=== PATIENT | male | born 1965 | race Caucasian/White ===

== ENCOUNTER 2016-12-24 09:06 | Emergency (ER) | payer SELFPAY ==
[~2016-12-24] VITALS: Ht 172.7 cm; Wt 77.1 kg
[~2016-12-24 09:06] MED LIST: AMOX500T PO; IBUP-232 PO; IBUP400T20 PO
[2016-12-24 09:07] VITALS: BP 110/79; PULSE 60; RESP 15; TEMP 98.1; O2SAT 97
[2016-12-24] MEDS ORDERED: PRED20 PO (09:27)
[2016-12-24] MEDS ORDERED: AZIT500T2 PO (09:27)
[2016-12-24] MEDS ORDERED: ALBUAER3 INH (09:27)
[2016-12-24] MEDS ORDERED: ALBUTEROL SULFATE 90 MCG/ACT HFA 8 GM INHALER INH ONE (09:30)
[2016-12-24] MEDS ORDERED: predniSONE 20 MG TAB PO ONE (09:30)
--- NOTE | 2016-12-24 09:30 | PD ---
HPI Chief Complaint: Cold / Flu Symptoms Time Seen by Provider: 09:16 Travel History International Travel<30 days: No Contact w/Intl Traveler<30days: No Traveled to known affect area: No History of Present Illness HPI Patient is a 51-year-old male who presents to emergency room with complaints of cough, congestion and wheezing for the past week. Patient reports that he is a smoker, reports that he has been coughing up thick yellowish sputum for the past week, reports increased sinus congestion with his symptoms. Patient denies any fevers or chills. Patient reports that his housemate is sick with similar symptoms. PFSH Past Medical History Arthritis: No Asthma: No Autoimmune Disease: No Blood Disorders: Yes (NEUTROPENIA) Heart Rhythm Problems: No Cancer: No Cardiovascular Problems: No High Cholesterol: No Chemotherapy: No Chest Pain: No Congestive Heart Failure: No COPD: No Cerebrovascular Accident: No Diabetes: No Diminished Hearing: No Endocrine: No Gastrointestinal Disorders: No GERD: No Glaucoma: No Genitourinary: No Headaches: No Hepatitis: No Hiatal Hernia: No Hypertension: No Immune Disorder: No Inguinal Hernia: Yes Implanted Vascular Access Dvce: No Kidney Stones: No Musculoskeletal: No Neurologic: No Psychiatric: No Reproductive: No Respiratory: No Immunizations Current: Yes Migraines: No Myocardial Infarction: No Radiation Therapy: No Renal Failure: No Seizures: No Sickle Cell Disease: No Sleep Apnea: No Thyroid Disease: No Ulcer: No Influenza Vaccination: No PNEUMOCCOCAL Vaccine (Year): 2 ?: Not Past Surgical History Abdominal Surgery: Yes (inginual hernia repair) AICD: No Appendectomy: No Arteriovenous Shunt: No Cardiac Surgery: No Cholecystectomy: No Ear Surgery: No Endocrine Surgery: No Eye Surgery: No Genitourinary Surgery: No Gynecologic Surgery: No Insulin Pump: No Joint Replacement: No Neurologic Surgery: No Oral Surgery: No Pacemaker: No Thoracic Surgery: No Other Surgery: Yes (Inguineal hernia repair) Social History Alcohol Use: No (denies) Tobacco Use: Yes (ONE PPD) Substance Use: No Allergies-Medications (Allergen,Severity, Reaction): Coded Allergies: No Known Allergies (Verified , 12/24/16) Reported Meds & Prescriptions Reported Meds & Active Scripts Active Prednisone 20 Mg Tab 20 Mg PO BID 5 Days Proair Hfa 8.5 GM Inh (Albuterol Sulfate) 90 Mcg/Act Aer 2 Puff INH Q4-6H PRN 108 mcg/actuation Azithromycin 500 Mg Tab 500 Mg PO DAILY Review of Systems General / Constitutional: No: Fever, Chills Eyes: No: Visual changes HENT: Positive: Rhinorrhea, No: Headaches Cardiovascular: No: Chest Pain or Discomfort Respiratory: Positive: Cough, Wheezing, No: Shortness of Breath, Hemoptysis, Stridor Gastrointestinal: No: Abdominal Pain Genitourinary: No: Dysuria Musculoskeletal: No: Pain Skin: No Rash Neurologic: No: Weakness Psychiatric: No: Depression Endocrine: No: Polydipsia Hematologic/Lymphatic: No: Easy Bruising Physical Exam Narrative GENERAL: No acute distress, nontoxic SKIN: Focused skin assessment warm/dry. HEAD: Atraumatic. Normocephalic. EYES: Pupils equal and round. No scleral icterus. No injection or drainage. ENT: No nasal bleeding or discharge. Mucous membranes pink and moist. NECK: Trachea midline. No JVD. CARDIOVASCULAR: Regular rate and rhythm. No murmur appreciated. RESPIRATORY: No accessory muscle use. Clear to auscultation. Breath sounds equal bilaterally. GASTROINTESTINAL: Abdomen soft, non-tender, nondistended. Hepatic and splenic margins not palpable. MUSCULOSKELETAL: No obvious deformities. No clubbing. No cyanosis. No edema. NEUROLOGICAL: Awake and alert. No obvious cranial nerve deficits. Motor grossly within normal limits. Normal speech. PSYCHIATRIC: Appropriate mood and affect; insight and judgment normal. Data Data Last Documented VS Vital Signs Date Time Temp Pulse Resp B/P Pulse Ox O2 Delivery O2 Flow Rate FiO2 12/24/16 09:16 Room Air 12/24/16 09:07 98.1 60 15 110/79 97 Orders Chest, Pa & Lat (12/24/16 09:24) Albuterol Hfa Inh (Proair Hfa Inh) (12/24/16 09:30) Prednisone (Deltasone) (12/24/16 09:30) Azithromycin (Zithromax) (12/24/16 10:30) MDM Medical Decision Making Medical Screen Exam Complete: Yes Emergency Medical Condition: Yes Interpretation(s) Vital Signs Date Time Temp Pulse Resp B/P Pulse Ox O2 Delivery O2 Flow Rate FiO2 12/24/16 09:16 Room Air 12/24/16 09:07 98.1 60 15 110/79 97 Differential Diagnosis Pneumonia, influenza, bronchitis, viral syndrome Narrative Course Patient is a 51-year-old male who presents to emergency room with complaints of cough, congestion and wheezing for the past week. Patient reports that he is a smoker, reports that he has been coughing up thick yellowish sputum for the past week, reports increased sinus congestion with his symptoms. Patient denies any fevers or chills. Patient reports that his housemate is sick with similar symptoms. On physical evaluation, patient nontoxic in appearance. X-ray of the chest ordered to evaluate for possible pneumonia. Will give neb treatment as well as steroids. Last Impressions Chest X-Ray 12/24/16923 Signed Impressions: Service Date/Time: Sunday, December 24, 2016 10:00 - CONCLUSION: No acute disease. There is no evidence of pneumonia. Vasile Freeman MD Patient will follow up with pcp and will return to ER as needed Diagnosis Primary Impression: Bronchitis Patient Instructions: General Instructions Additional Instructions: Please stop with your primary care doctor in 2-3 days Please take all antibiotics as prescribed until completion Return to emergency room as needed Return to the emergency room if symptoms worsen or progress Med/Other Pt SpecificInfo: Prescription(s) given Scripts Prednisone 20 Mg Tab20 Mg PO BID 5 Days Ref 0 Prov:Bushra Barrios DO 12/24/16 Albuterol 8.5 GM Inh (Proair Hfa 8.5 GM Inh)90 Mcg/Act Aer2 Puff INH Q4-6H PRN ( SHORTNESS OF BREATH) #1 INHALER Ref 0 108 mcg/actuation Prov:Bushra Barrios DO 12/24/16 Azithromycin 500 Mg [id number] Mg PO DAILY #5 TAB Ref 0 Prov:Bushra Barrios DO 12/24/16 Disposition: 01 DISCHARGE HOME Condition: Stable Bushra Barrios DO December 24, 2016 09:30
--- NOTE | 2016-12-24 10:18 | RADHPO ---
EXAM DATE/TIME: 12/24/2016 10:00 [facility] COMPARISON: CHEST PA & LAT, May 02, 2016, 8:52. INDICATIONS : Cough, short of breath MEDICAL HISTORY : None. SURGICAL HISTORY : None. ENCOUNTER: Initial ACUITY: 1 week PAIN SCORE: 0/10 LOCATION: Bilateral chest FINDINGS: PA and lateral views of the chest demonstrate the lungs to be symmetrically aerated without evidence of mass, infiltrate or effusion. The cardiomediastinal contours are unremarkable. Osseous structure s are intact. CONCLUSION: No acute disease. There is no evidence of pneumonia. Vasile Freeman MD on December 24, 2016 at 10:16 Board Certified Radiologist. This report was verified electronically.
[2016-12-24] MEDS ORDERED: AZITHROMYCIN 250 MG TAB PO ONE (10:30)
== END 2016-12-24 10:37 | disposition home or self-care (01) ==
LOC: PHEFT 09:06
DX: J40 Bronchitis, not specified as acute or chronic (principal); F17.210 Nicotine dependence, cigarettes, uncomplicated
CPT/HCPCS: 71020; 99283; J7512

== ENCOUNTER 2017-02-11 20:11 | Emergency (ER) | payer SELFPAY ==
[~2017-02-11] VITALS: Ht 175.3 cm; Wt 80.0 kg
[~2017-02-11 20:11] MED LIST changes: +ALBUAER3 INH; -AMOX500T PO; +AZIT500T2 PO; -IBUP-232 PO; -IBUP400T20 PO; +PRED20 PO
[2017-02-11 20:17] VITALS: BP 104/70; PULSE 92; RESP 14; TEMP 98.4; O2SAT 95
[2017-02-11] MEDS ORDERED: IBUP800T23 PO (20:32)
[2017-02-11] MEDS ORDERED: AMOX500C PO (20:32)
--- NOTE | 2017-02-11 20:32 | PD ---
HPI Chief Complaint: Oral / Dental Pain or Problem Time Seen by Provider: 20:24 Travel History International Travel<30 days: No Contact w/Intl Traveler<30days: No Traveled to known affect area: No History of Present Illness HPI The patient is a 52-year-old male that has had a toothache and tooth #1 for 2 days. He has a history of 9 visits this hospital system for dental infections. He does have a past history of polysubstance abuse including cocaine. He has never seen a dentist. He says he plans to see one but he does not have the money. He has no primary care physician or insurance. He denies any fever. PFSH Past Medical History Medical History: Denies Significant Hx Arthritis: No Asthma: No Autoimmune Disease: No Blood Disorders: Yes (NEUTROPENIA) Heart Rhythm Problems: No Cancer: No Cardiovascular Problems: No High Cholesterol: No Chemotherapy: No Chest Pain: No Congestive Heart Failure: No COPD: No Cerebrovascular Accident: No Diabetes: No Diminished Hearing: No Endocrine: No Gastrointestinal Disorders: No GERD: No Glaucoma: No Genitourinary: No Headaches: No Hepatitis: No Hiatal Hernia: No Hypertension: No Immune Disorder: No Inguinal Hernia: Yes Implanted Vascular Access Dvce: No Kidney Stones: No Musculoskeletal: No Neurologic: No Psychiatric: No Reproductive: No Respiratory: No Immunizations Current: Yes Migraines: No Myocardial Infarction: No Radiation Therapy: No Renal Failure: No Seizures: No Sickle Cell Disease: No Sleep Apnea: No Thyroid Disease: No Ulcer: No Tetanus Vaccination: > 5 Years Influenza Vaccination: No PNEUMOCCOCAL Vaccine (Year): 2 Past Surgical History Abdominal Surgery: Yes (inginual hernia repair) AICD: No Appendectomy: No Arteriovenous Shunt: No Cardiac Surgery: No Cholecystectomy: No Ear Surgery: No Endocrine Surgery: No Eye Surgery: No Genitourinary Surgery: No Gynecologic Surgery: No Insulin Pump: No Joint Replacement: No Neurologic Surgery: No Oral Surgery: No Pacemaker: No Thoracic Surgery: No Other Surgery: Yes (Inguineal hernia repair) Social History Alcohol Use: No (denies) Tobacco Use: Yes (ONE PPD) Substance Use: No Allergies-Medications (Allergen,Severity, Reaction): Coded Allergies: No Known Allergies (Verified , 02/11/17) Reported Meds & Prescriptions Reported Meds & Active Scripts Active No Active Prescriptions or Reported Medications Review of Systems Except as stated in HPI: all other systems reviewed are Neg Physical Exam Narrative GENERAL: The patient is alert, oriented 3 and slight apparent distress with his dental pain. His vital signs show heart rate of 92 but otherwise normal. SKIN: Focused skin assessment warm/dry. HEAD: Atraumatic. Normocephalic. EYES: Pupils equal and round. No scleral icterus. No injection or drainage. ENT: No nasal bleeding or discharge. Mucous membranes pink and moist. NECK: Trachea midline. No JVD. CARDIOVASCULAR: Regular rate and rhythm. No murmur appreciated. RESPIRATORY: No accessory muscle use. Clear to auscultation. Breath sounds equal bilaterally. GASTROINTESTINAL: Abdomen soft, non-tender, nondistended. Hepatic and splenic margins not palpable. MUSCULOSKELETAL: No obvious deformities. No clubbing. No cyanosis. No edema. NEUROLOGICAL: Awake and alert. No obvious cranial nerve deficits. Motor grossly within normal limits. Normal speech. PSYCHIATRIC: Appropriate mood and affect; insight and judgment normal. DENTAL: No loose or chipped teeth. No malocclusion. There are no drainable abscess is present and there is tenderness on tooth #1. Data Data Last Documented VS Vital Signs Date Time Temp Pulse Resp B/P Pulse Ox O2 Delivery O2 Flow Rate FiO2 02/11/17 20:23 02/11/17 20:17 98.4 92 14 95 Room Air MDM Medical Decision Making Medical Screen Exam Complete: Yes Emergency Medical Condition: Yes Medical Record Reviewed: Yes Differential Diagnosis Dental infection, drainable abscess on gums, TMJ pain, ear pain Narrative Course The patient has a dental infection with no drainable abscess. Plan: He will be given Motrin 800 mg 3 times daily and amoxicillin with multiple refills. Diagnosis Primary Impression: Dental infection Med/Other Pt SpecificInfo: Prescription(s) given Scripts Ibuprofen 800 Mg [id number] Mg PO TID #33 TAB Ref 0 Prov:Rivera Mcfarland MD 02/11/17 Amoxicillin 500 Mg [id number] Mg PO TID 10 Days Ref 0 Prov:Rivera Mcfarland MD 02/11/17 Disposition: 01 DISCHARGE HOME Condition: Stable Rivera Mcfarland MD Feb 11, 2017 20:32
[2017-02-11] MEDS ORDERED: IBUPROFEN 800 MG TAB PO ONE (20:45)
[2017-02-11] MEDS ORDERED: AMOXICILLIN 875 MG TAB PO ONE (20:45)
== END 2017-02-11 20:51 | disposition home or self-care (01) ==
LOC: PHEFT 20:11
DX: K04.7 Periapical abscess without sinus (principal); D70.9 Neutropenia, unspecified
CPT/HCPCS: 99283